=== PATIENT | female | born 1985 | race Caucasian/White ===

== ENCOUNTER → 2024-08-15 | Outpatient (CLI) | payer OTHER | END | disposition home or self-care (01) | LOC: LAB SHORT 16:08 → LAB 16:08 | DX: O09.93 Supervision of high risk pregnancy, unspecified, third trimester (principal) | CPT/HCPCS: 87081; 87150 ==

== ENCOUNTER 2024-08-29 12:40 | Inpatient (IN) | payer OTHER ==
[~2024-08-29] VITALS: Ht 154.9 cm; Wt 59.0 kg
[2024-08-29] VITALS (27 sets, daily range): BP systolic 98–140; BP diastolic 51–94
[2024-08-29] MEDS ORDERED: Penicillin G Potassium 5,000,000 UNITS in NS 250 ML IV ONE (13:05)
[2024-08-29] MEDS ORDERED: Lactated Ringer's 1,000 ML IV ONE (13:09)
[2024-08-29] MEDS ORDERED: OXYTOCIN/RINGER'S LACTATE 500 ML IV ONE (13:09)
[2024-08-29] MEDS ORDERED: Carboprost Tromethamine 250 MCG/ML 1ML Amp IM PRN ×2 (13:30→19:10)
[2024-08-29] MEDS ORDERED: Calcium Carbonate 500 MG Tab Chew PO PRN (13:30)
[2024-08-29] MEDS ORDERED: Misoprostol 200 MCG Tab PR PRN ×2 (13:30→19:05)
[2024-08-29] MEDS ORDERED: Lactated Ringer's 1,000 ML IV SCH ×3 (13:30→19:05)
[2024-08-29] MEDS ORDERED: ePHEDrine Sulfate 50 MG/ML 1ML Injection XX PRN (13:30)
[2024-08-29] MEDS ORDERED: Acetaminophen 500 MG Tab PO PRN ×2 (13:30→19:05)
[2024-08-29] MEDS ORDERED: OXYTOCIN/RINGER'S LACTATE 500 ML IV PRN (13:30)
[2024-08-29] MEDS ORDERED: FentaNYL 2mcg/ml-Bup 0.1% Epd 250 ML EPI PRN (13:30)
[2024-08-29] MEDS ORDERED: Misoprostol 200 MCG Tab BC PRN (13:30)
[2024-08-29] MEDS ORDERED: Ondansetron HCl 2 MG / ML 2ML Vial IV PRN (13:30)
[2024-08-29] MEDS ORDERED: Oxytocin 10 Unit / ML Vial IM PRN (13:30)
[2024-08-29] MEDS ORDERED: Methylergonovine Maleate 0.2MG / ML 1ML Amp IM PRN ×2 (13:30→19:10)
[2024-08-29] MEDS ORDERED: Lactated Ringer's 1,000 ML IV PRN (13:30)
[2024-08-29] MEDS ORDERED: FentaNYL Citrate 50 MCG/ML 2 ML Injection IV PRN (13:35)
[2024-08-29] MEDS ORDERED: Tranexamic Acid 100 ML IV SCH (13:40)
[2024-08-29 14:22] LABS: BASOPHILS ABSOLUTE AUTO 0.05 K/mm3 (0.00-0.23); BASOPHILS PERCENT AUTO 0 % (0-2); EOSINOPHILS ABSOLUTE AUTO 0.04 K/mm3 (0.00-0.68); EOSINOPHILS PERCENT AUTO 0 % (0-6); Hematocrit 34.4 % (33.0-51.0); Hemoglobin 10.5 g/dL (11.5-16.0); IMMATURE GRAN ABSOLUTE AUTO 0.08 K/mm3 (0.00-0.10); IMMATURE GRAN PERCENT AUTO 1 % (0-1); LYMPHOCYTES ABSOLUTE AUTO 1.47 K/mm3 (0.84-5.20); LYMPHOCYTES PERCENT AUTO 12 % (21-46); MONOCYTES ABSOLUTE AUTO 0.88 K/mm3 (0.16-1.47); MONOCYTES PERCENT AUTO 7 % (4-13); Mean Corpuscular HGB 24.6 pg (26.0-34.0); Mean Corpuscular HGB Conc 30.5 g/dL (31.5-36.5); Mean Corpuscular Volume 81 fL (80-100); Mean Platelet Volume 9.5 fL (9.1-12.4); NEUTROPHILS ABSOLUTE AUTO 9.82 K/mm3 (1.96-9.15); NEUTROPHILS PERCENT AUTO 80 % (41-73); Platelet Count 447 K/mm3 (150-400); RDW Standard Deviation 43.9 fL (35.1-46.3); Red Blood Cell Count 4.27 M/mm3 (3.80-5.20); White Blood Cell Count 12.34 K/mm3 (4.00-11.30)
[2024-08-29] MEDS ORDERED: Penicillin G Potassium 2,500,000 UNITS in Dextrose 5% 100 ML IV SCH ×2 (17:30→20:00)
[2024-08-29] MEDS ORDERED: Witch Hazel/Glycerin PADS TOP PRN (19:05)
[2024-08-29] MEDS ORDERED: Docusate Sodium 100 MG Cap PO PRN (19:05)
[2024-08-29] MEDS ORDERED: Ibuprofen 400 MG Tab PO PRN (19:05)
[2024-08-29] MEDS ORDERED: Ketorolac Tromethamine 30mg Vial IV PRN (19:05)
[2024-08-29] MEDS ORDERED: OXYTOCIN/RINGER'S LACTATE 500 ML IV SCH (19:10)
[2024-08-29] MEDS ORDERED: Lanolin Cream TOP PRN (19:10)
[2024-08-29] MEDS ORDERED: Oxytocin 10 Unit / ML Vial IM ONE (19:10)
[2024-08-29] MEDS ORDERED: Benzocaine Topical Anesthetic Spray 60GM TOP PRN (19:10)
[2024-08-30] VITALS (15 sets, daily range): BP systolic 113–148; BP diastolic 68–87
--- NOTE | 2024-08-30 03:10 | NUR ---
PT UP TO BATHROOM, CALLED RN IN ROOM TO SHOW CLOTS X2 APPROX. SIZE OF GOLF BALL. RN IS HELPING PT TO GET UP OFF TOILET, ANOTHER CLOT THAT WAS BIGGER IN SIZE FELL INTO TOILET. RN WEIGHED PADS AND CLOTS; TOTAL OF 242 MLS BLOOD LOSS. FUNDAL COMPLETED, WITH A FEW SMALL CLOTS NOTED OTHERWISE, NO OTHER CLOTS SEEN AT THIS TIME. RN WILL MONITOR AND REASSESS THIS SHIFT. MEDICAL OBSERVER UPDATED.
--- NOTE | 2024-08-30 03:48 | NUR ---
REASSESSMENT RN GAYLE IN TO REASSESS BLEEDING AND FUNDUS, PT WITH 2-3 MORE CLOTS THAT CAME OUT. FUNDUS CONTINUES TO BE FIRM, MIDLINE AND BELOW THE UMBILICUS. RN UPDATED FLUE TILE PRESS OPERATOR; RN TO START PP PITOCIN, WEIGH NEW PADS WHEN ABLE AND NOTIFY PT'S CNM TO UPDATE. RN WILL CONTINUE TO MONTIOR AND REASSESS NEEDED. WILL UPDATE PROVIDER WHEN PADS ARE WEIGHED AND TOTAL BLOOD LOSS IS KNOWN. PP PITOCIN STARTED.
--- NOTE | 2024-08-30 04:15 | NUR ---
UPDATE RN CALLED TO UPDATE PROVIDER ON NEW BLOOD LOSS OF 519 MLS AND PASSING OF CLOTS. PROVIDER WITH NO NEW ORDERS, RN TO CONTINUE WITH MONITORING VS, BLOOD LOSS, COMPLETE FUNDALS AND COMPLETE BAG OF PP PITOCIN. IF BLEEDING DOES NOT SLOW DOWN OR IMPROVE, RN TO START BAG OF TXA X1 PER PROVIDER. RN TO NOTIFY PROVIDER IF BLOOD LOSS CONTINUES OR WORSENS, IF PT CONDITION CHANGES OR SIGNIFICANT VS CHANGE. RUBBER GOODS SUPERVISOR UPDATED WELL. PT CONTINUES TO DENY SX.
--- NOTE | 2024-08-30 06:23 | NUR ---
SUMMARY PT BLEEDING IMPROVED AFTER COMPLETION OF PITOCIN, NO OTHER BLOOD CLOTS SEEN. TOTAL BLOOD LOSS 539. VSS. FUNDAL WNL, PT CONTINUES TO DENY SX. WILL UPDATE ONCOMING RN AND MONITOR UNTIL AM RN ASSUMES CARE.
[2024-08-30 06:30] LABS: BASOPHILS ABSOLUTE AUTO 0.05 K/mm3 (0.00-0.23); BASOPHILS PERCENT AUTO 0 % (0-2); EOSINOPHILS PERCENT AUTO 1 % (0-6); Hematocrit 29.8 % (33.0-51.0); Hemoglobin 9.1 g/dL (11.5-16.0); IMMATURE GRAN ABSOLUTE AUTO 0.07 K/mm3 (0.00-0.10); IMMATURE GRAN PERCENT AUTO 1 % (0-1); LYMPHOCYTES ABSOLUTE AUTO 2.01 K/mm3 (0.84-5.20); LYMPHOCYTES PERCENT AUTO 17 % (21-46); MONOCYTES ABSOLUTE AUTO 0.94 K/mm3 (0.16-1.47); MONOCYTES PERCENT AUTO 8 % (4-13); Mean Corpuscular HGB 24.4 pg (26.0-34.0); Mean Corpuscular HGB Conc 30.5 g/dL (31.5-36.5); Mean Corpuscular Volume 80 fL (80-100); Mean Platelet Volume 9.8 fL (9.1-12.4); NEUTROPHILS ABSOLUTE AUTO 8.64 K/mm3 (1.96-9.15); NEUTROPHILS PERCENT AUTO 73 % (41-73); Platelet Count 433 K/mm3 (150-400); RDW Coefficient Variation 14.9 % (11.7-14.2); RDW Standard Deviation 43.7 fL (35.1-46.3); Red Blood Cell Count 3.73 M/mm3 (3.80-5.20); White Blood Cell Count 11.81 K/mm3 (4.00-11.30)
[2024-08-30] MEDS ORDERED: Prenatal Vit/FE Fumarate/FA 1 Tab PO SCH (09:00)
[2024-08-30] MEDS ORDERED: Measles/Mumps/Rubella Vaccine 0.5 ML Vial SC ONE (10:55)
--- NOTE | 2024-08-31 06:59 | NUR ---
LATE ENTRY: MOTHER MOVED TO BORDER STATUS AFTER DISCHARGE TEACHING AND PPFU APPT SCHEDULED. AROUND 2300 ON 08/30.
== END 2024-08-30 23:20 | disposition home or self-care (01) | DRG 807 ==
LOC: BC 12:40 → OBS 12:40 → BC 13:10
PROVIDERS: ADMIT Advanced Practice Midwife
PROC: 10E0XZZ Delivery of Products of Conception, External Approach (ICD-10-PCS; principal; 2024-08-29)
PROC: 10907ZC Drainage of Amniotic Fluid, Therapeutic from Products of Conception, Via Natural or Artificial Opening (ICD-10-PCS; 2024-08-29)
PROC: 4A1HXCZ Monitoring of Products of Conception, Cardiac Rate, External Approach (ICD-10-PCS; 2024-08-29)
DX: O99.824 Streptococcus B carrier state complicating childbirth (principal); Z37.0 Single live birth; O99.344 Other mental disorders complicating childbirth; F41.9 Anxiety disorder, unspecified; Z3A.39 39 weeks gestation of pregnancy; Z88.2 Allergy status to sulfonamides; O77.0 Labor and delivery complicated by meconium in amniotic fluid
CPT/HCPCS: 36415; 51702; 59025; 85025; 86850; 86900; 86901; 86923; 99214; A9270; J1885; J2540; J2590; J7050; J7120